=== PATIENT | female | born 1950 | race Caucasian/White ===

== ENCOUNTER 2018-10-14 08:54 | Outpatient (CLI) | payer OTHER | END 2018-10-14 09:02 | disposition home or self-care (01) | LOC: SONOGRAMA 08:54 | DX: K76.0 Fatty (change of) liver, not elsewhere classified (principal) ==

== ENCOUNTER 2020-12-05 09:42 | Outpatient (CLI) | payer OTHER | END 2020-12-05 09:59 | disposition home or self-care (01) | LOC: MAMO-SONO 09:42 | PROVIDERS: ATTEND Family Medicine | DX: N60.02 Solitary cyst of left breast (principal); R22.2 Localized swelling, mass and lump, trunk; Z12.31 Encounter for screening mammogram for malignant neoplasm of breast; N64.59 Other signs and symptoms in breast ==

== ENCOUNTER 2020-12-13 08:09 | Outpatient (CLI) | payer OTHER | END 2020-12-13 08:18 | disposition home or self-care (01) | LOC: SONOGRAMA 08:09 | PROVIDERS: ATTEND Family Medicine | DX: N60.39 Fibrosclerosis of unspecified breast (principal) ==

== ENCOUNTER 2020-12-26 08:36 | Outpatient (CLI) | payer OTHER | END 2020-12-26 08:46 | disposition home or self-care (01) | LOC: SONOGRAMA 08:36 | PROVIDERS: ATTEND Pathology Anatomic Pathology & Clinical Pathology | DX: N60.39 Fibrosclerosis of unspecified breast (principal) ==

== ENCOUNTER 2021-06-27 08:05 | Outpatient (CLI) | payer OTHER | END 2021-06-27 08:18 | disposition home or self-care (01) | LOC: SONOGRAMA 08:05 → MAMO-SONO 13:45 | DX: N63.22 Unspecified lump in the left breast, upper inner quadrant (principal) ==

== ENCOUNTER 2022-02-12 15:26 | Outpatient (CLI) | payer OTHER | END 2022-02-12 15:28 | disposition home or self-care (01) | LOC: RAD 15:26 | PROVIDERS: ATTEND Family Medicine | DX: R10.10 Upper abdominal pain, unspecified (principal); R05.1 Acute cough ==

== ENCOUNTER 2022-03-13 08:11 | Outpatient (CLI) | payer OTHER | END 2022-03-13 08:13 | disposition home or self-care (01) | LOC: SONOGRAMA 08:11 | PROVIDERS: ATTEND Family Medicine | DX: R10.10 Upper abdominal pain, unspecified (principal) ==

== ENCOUNTER 2022-06-24 13:47 | Outpatient (CLI) | payer OTHER | END 2022-06-24 13:55 | disposition home or self-care (01) | LOC: RAD 13:47 | PROVIDERS: ATTEND Family Medicine | DX: R05.1 Acute cough (principal) ==

== ENCOUNTER 2023-08-16 14:36 | Outpatient (CLI) | payer OTHER | END 2023-08-16 14:49 | disposition home or self-care (01) | LOC: RAD 14:36 | DX: M17.0 Bilateral primary osteoarthritis of knee (principal) ==

== ENCOUNTER 2023-09-20 07:00 | Emergency (ER) | payer OTHER ==
[~2023-09-20] VITALS: Ht 154.9 cm; Wt 79.4 kg
[2023-09-20 09:40] LABS: HEMATOCRIT 41.6 % (36.0-45.00); HEMOGLOBIN 13.9 g/dL (12.0-15.00); MEAN CELL VOLUME 93.1 fL (80.00-100.00); MEAN CORPUSCULAR HEMOGLOBIN 31.3 pg (27.00-32.0); MEAN CORPUSCULAR HGB CONC 33.6 g/dl (32.0-36.0); PLATELET COUNT 189 K/uL (150-450); RED BLOOD COUNT 4.46 M/uL (4.00-6.00); RED CELL DISTRIBUTION WIDTH 12.8 % (11.5-14.5)
[2023-09-20 09:56] LABS: PH,URINE 5.5 (5.0-8.0); URINE APPEARANCE Clear; URINE BILIRRUBIN Negative (NEGATIVE); URINE BLOOD Small; URINE COLOR Yellow; URINE GLUCOSE Negative (NEGATIVE); URINE LEUKOCYTE Negative; URINE NITRATE Negative; URINE PROTEIN Negative (NEGATIVE)
[2023-09-20 09:57] LABS: URINE BACTERIA 31.4 uL (0.0-1933); URINE EPITHELIAL CELLS 17.4 uL (0.0-38.8); URINE RBC 68.8 uL (0.0-20.8); URINE WBC 11.8 uL (0.0-23.2)
[2023-09-20 10:18] LABS: CALCIUM 10.2 mg/dL (8.5-10.1); CREATININE SERUM 1.21 mg/dL (0.55-1.02); GFR 43.74; POTASSIUM 3.71 mEq/L (3.5-5.1)
== END 2023-09-20 12:14 | disposition home or self-care (01) ==
LOC: ER 07:00
PROVIDERS: General Practice
DX: M54.9 Dorsalgia, unspecified (principal); D25.9 Leiomyoma of uterus, unspecified; K57.90 Diverticulosis of intestine, part unspecified, without perforation or abscess without bleeding

== ENCOUNTER 2023-12-09 13:55 | Outpatient (CLI) | payer OTHER | END 2023-12-09 13:59 | disposition home or self-care (01) | LOC: RAD 13:55 | PROVIDERS: ATTEND General Practice | DX: J45.20 Mild intermittent asthma, uncomplicated (principal) ==

== ENCOUNTER 2024-07-19 08:43 | Outpatient (CLI) | payer OTHER | END 2024-07-19 08:53 | disposition home or self-care (01) | LOC: RAD 08:43 | PROVIDERS: ATTEND Family Medicine | DX: M79.631 Pain in right forearm (principal) ==

== ENCOUNTER 2024-10-27 11:15 | Outpatient (CLI) | payer OTHER | END 2024-10-27 11:27 | disposition home or self-care (01) | LOC: RAD 11:15 | PROVIDERS: ATTEND Family Medicine | DX: M54.50 Low back pain, unspecified (principal) ==

== ENCOUNTER 2024-12-04 11:12 | Outpatient (CLI) | payer OTHER | END 2024-12-04 11:13 | disposition home or self-care (01) | LOC: NUCLEAR 11:12 | PROVIDERS: ATTEND Orthopaedic Surgery | DX: M81.0 Age-related osteoporosis without current pathological fracture (principal) ==